=== PATIENT | female | born 1990 | race African-American/Black ===

== ENCOUNTER 2018-06-22 05:12 | Emergency (ER) | payer MEDICAID ==
[~2018-06-22] VITALS: Ht 172.7 cm; Wt 89.8 kg
[2018-06-22 05:18] VITALS: BP 124/84
--- NOTE | 2018-06-22 05:18 | NUR ---
TO BED # 04 AMBULATORY
--- NOTE | 2018-06-22 05:31 | NUR ---
PT TO ED WITH C/O PALPITATIONS X 2 HRS. PT DENIES CP/SOB. PT REPORTS PALPITATIONS WOKE HER FROM HER SLEEP. CARDIAC ASSESSMENT NORMAL, S1S2 HEARD AND REGULAR. NO EDEMA PRESENT. PT ATTACHED TO BEDSIDE CARDIAC MONITORS. PT PLACED INTO BED, PENDING MD SEGUNDO.
--- NOTE | 2018-06-22 06:22 | NUR ---
LAB SPECIMENS DRAWN AND WALKED DOWN TO LAB BY
[2018-06-22 06:37] LABS: BARBITURATE, URINE NEG. ng/ml (NEG <=200); BENZODIAZEPINE, URINE NEG. ng/mL (NEG <=200); CANNABINOID, URINE NEG. ng/mL (NEG <=50); COCAINE, URINE NEG. ng/mL (NEG <=300); OPIATE, URINE NEG. ng/mL (NEG <=2000); PHENCYCLIDINE SCREEN,URINE NEG. ng/mL (NEG <=25)
[2018-06-22 06:58] LABS: ALBUMIN 3.6 g/dL (3.4-5.0); ANION GAP 13.9 (8-16); CREATININE 1.1 mg/dL (0.6-1.3); FREE T4 (FREE THYROXINE) 1.4 ng/dL (0.76-1.46); POTASSIUM 3.9 mmol/L (3.5-5.1); THYROID STIMULATING HORMONE 3.1 uIU/mL (0.34-3.74); TOTAL BILIRUBIN 0.2 mg/dL (0.0-1.0)
[2018-06-22 07:18] VITALS: BP 108/73
--- NOTE | 2018-06-22 07:18 | NUR ---
Patient discharged with v/s stable. Written and verbal after care instructions given and explained. Patient verbalized understanding. Ambulatory with steady gait. All questions addressed prior to discharge. Advised to follow up with PMD.
[2018-06-22 07:30] LABS: BASOPHILS % (AUTO) 0.5 % (0.0-2.0); EOSINOPHILS # (AUTO) 0.1 K/uL (0-0.4); EOSINOPHILS % (AUTO) 1.4 % (0.0-4.0); HEMATOCRIT 35.1 % (36-48); HEMOGLOBIN 11.3 g/dL (12.0-16.0); LYMPHOCYTES # (AUTO) 2.4 K/uL (2.5-16.5); LYMPHOCYTES % (AUTO) 40.2 % (20.5-51.1); MEAN CORPUSCULAR HEMOGLOBIN 22 pg (27-31); MEAN CORPUSCULAR HGB CONC 32 g/dL (33-37); MEAN CORPUSCULAR VOLUME 68.9 fL (80-94); MONOCYTES # (AUTO) 0.8 K/uL (0.8-1.0); MONOCYTES % (AUTO) 12.6 % (1.7-9.3); NEUTROPHILS # (AUTO) 2.7 K/uL (1.8-7.7); NEUTROPHILS % (AUTO) 45.3 % (42.2-75.2); PLATELET COUNT (AUTO) 379 K/uL (140-450); RED BLOOD CELL COUNT(AUTO) 5.09 MIL/uL (4.20-5.40); RED CELL DISTRIBUTION WIDTH 19.2 % (11.6-13.7); WHITE BLOOD COUNT (AUTO) 6.1 K/uL (4.8-10.8)
== END 2018-06-22 07:18 | disposition home or self-care (01) ==
LOC: MED 05:12
DX: R00.2 Palpitations (principal)
CPT/HCPCS: 36415; 80053; 80305; 81002; 81025; 84439; 84443; 85025; 93005; 99284